=== PATIENT | female | born 1990 | race Caucasian/White ===

== ENCOUNTER 2016-05-20 00:20 | Emergency (ER) | payer OTHER ==
[~2016-05-20] VITALS: Ht 157.5 cm; Wt 118.8 kg
[2016-05-20] MEDS ORDERED: MOTRIN800 MG PO (01:56)
[2016-05-20 02:02] VITALS: BP 124/94
== END 2016-05-20 02:12 | disposition home or self-care (01) ==
LOC: EME 00:20
DX: S93.402A Sprain of unspecified ligament of left ankle, initial encounter (principal); S93.602A Unspecified sprain of left foot, initial encounter; X50.0XXA Overexertion from strenuous movement or load, initial encounter; Y93.02 Activity, running
CPT/HCPCS: 73610; 73630; 99281; 99284

== ENCOUNTER → 2017-01-12 | Outpatient (CLI) | payer BC ==
[~2017-01-12] VITALS: Ht 157.5 cm; Wt 124.3 kg
[~2017-01-12] MED LIST: IMITREX25 MG PO; INDERAL80 MG PO; LEXAPRO10 MG PO; MICROGESTIN1 EAC1 PO; MOTRIN800 MG PO; SYNTHROID75 MCG PO; ZANAFLEX4 M1 PO; ZANTAC75 M1 PO
== END | disposition home or self-care (01) ==
LOC: AMB 10:30
DX: K26.9 Duodenal ulcer, unspecified as acute or chronic, without hemorrhage or perforation (principal); K29.70 Gastritis, unspecified, without bleeding; K22.10 Ulcer of esophagus without bleeding; K21.9 Gastro-esophageal reflux disease without esophagitis; G89.29 Other chronic pain; M54.9 Dorsalgia, unspecified; F32.9 Major depressive disorder, single episode, unspecified; I10 Essential (primary) hypertension; E03.9 Hypothyroidism, unspecified; G43.009 Migraine without aura, not intractable, without status migrainosus; E66.01 Morbid (severe) obesity due to excess calories; E28.2 Polycystic ovarian syndrome; Z82.0 Family history of epilepsy and other diseases of the nervous system; Z83.49 Family history of other endocrine, nutritional and metabolic diseases; Z83.3 Family history of diabetes mellitus; Z82.49 Family history of ischemic heart disease and other diseases of the circulatory system; Z82.61 Family history of arthritis; Z84.1 Family history of disorders of kidney and ureter
CPT/HCPCS: 88305; 88342 TC; 93005; J2250; J3010

== ENCOUNTER 2017-09-04 23:03 | Emergency (ER) | payer OTHER ==
[~2017-09-04] VITALS: Ht 157.5 cm; Wt 126.0 kg
[2017-09-05 00:18] LABS: HEMATOCRIT 36.1 % (36.0-46.0); HEMOGLOBIN 12.7 G/DL (11.9-15.5); MCH 31.1 PG (29.0-34.0); MCHC 35.2 G/DL (30.0-36.0); MCV 88.3 FL (83-99); PLATELET COUNT 203 K/uL (156-360); RBC DIS.WIDTH-CV 11.9 % (11.8-14.6); RBC DIS.WIDTH-SD 38.2 % (39-53); RED BLOOD COUNT 4.09 M/uL (3.80-5.20); WHITE BLOOD COUNT 10.8 K/uL (4.1-10.2)
[2017-09-05 00:33] LABS: CHLORIDE 106 mEq/L (99-109); POTASSIUM 3.6 mEq/L (3.7-5.4); SODIUM 140 mEq/L (136-147)
[2017-09-05 00:35] LABS: GLUCOSE 87 mg/dL (70-99); TOTAL PROTEIN 7.1 g/dL (6.4-8.3)
[2017-09-05 00:37] LABS: TOTAL BILIRUBIN 0.5 mg/dL (0.0-1.0)
[2017-09-05 00:38] LABS: ALKALINE PHOSPHATASE 79 IU/L (3-129)
[2017-09-05 00:39] LABS: CREATININE 0.8 mg/dL (0.6-1.3); GFR ESTIMATE (CALCULATED) > 59 mL/min/
[2017-09-05 00:40] LABS: AST (GOT) 15 IU/L (2-34); UREA NITROGEN (BUN) 11 mg/dL (9-23)
[2017-09-05 00:42] LABS: ALT (GPT) 11 IU/L (3-49)
[2017-09-05 00:50] LABS: QUANTITATIVE HCG < 4.0 MIU/ML
[2017-09-05 01:07] LABS: APPEARANCE SL.HAZY ((CLEAR)); BILIRUBIN NEGATIVE; BLOOD NEGATIVE; COLOR YELLOW ((YELLOW)); GLUCOSE (STRIP) NEGATIVE; KETONES 5; LEUKOCYTES NEGATIVE; NITRITE NEGATIVE; PROTEIN (STRIP) 30; SPECIFIC GRAVITY 1.027 (1.000-1.030); UROBILINOGEN 0.2 MG/DL (0.2-1.0)
[2017-09-05 01:09] LABS: BACTERIA 1+ /HPF; EPITHELIAL CELLS 1+ /HPF; MUCUS TRACE /LPF; RED BLOOD CELLS 0-5 /HPF (0-5); UCUL ADDED? NO; WHITE BLOOD CELLS 0-5 /HPF (0-5)
[2017-09-05 01:24] LABS: AMPHETAMINE NEGATIVE (500 ng/mL); BARBITURATES NEGATIVE (200 ng/mL); BENZODIAZEPINES NEGATIVE (150 ng/mL); BUPRENORPHINE NEGATIVE (10 ng/mL); COCAINE NEGATIVE (150 ng/mL); METHADONE NEGATIVE (200 ng/mL); METHAMPHETAMINE NEGATIVE (500 ng/mL); OPIATES (MORPHINE) NEGATIVE (100 ng/mL); OXYCODONE NEGATIVE (100 ng/mL); PHENCYCLIDINE NEGATIVE (25 ng/mL); PROPOXYPHENE NEGATIVE (300 ng/mL); THC CANNABINOIDS NEGATIVE (50 ng/mL); TRICYCLIC ANTIDEPRESSANTS NEGATIVE (300 ng/mL)
[2017-09-05 02:30] VITALS: BP 144/85
[2017-09-05 07:57] LABS: THYROTROPIN (TSH) 1.9 MIU/L (0.4-5.5)
== END 2017-09-05 02:35 | disposition home or self-care (01) ==
LOC: EME 23:03
PROVIDERS: Physician Assistant
DX: R55 Syncope and collapse (principal); S93.402A Sprain of unspecified ligament of left ankle, initial encounter; W18.30XA Fall on same level, unspecified, initial encounter; F41.9 Anxiety disorder, unspecified; G43.909 Migraine, unspecified, not intractable, without status migrainosus; Z88.0 Allergy status to penicillin
CPT/HCPCS: 70450; 73610; 80053; 81003; 84443; 84702; 85027; 93005; 99281; 99284